=== PATIENT | female | born 1970 ===

== ENCOUNTER 2020-09-18 13:28 | Emergency (ER) | payer OTHER, MEDICAID ==
[~2020-09-18] VITALS: Ht 160 cm; Wt 76.8 kg
[2020-09-18 13:35] VITALS: Ht 160 cm; Wt 76.8 kg
[2020-09-18 14:14] LABS: BASOPHILS 0.7 % (0-2); HEMATOCRIT 37.9 % (36.0-48.0); HEMOGLOBIN 12.1 g/dL (12-16); IMMATURE GRANULOCYTES 0.1 % (0-5); LYMPHOCYTE ABS# 2.73 10x3/uL (1.18-3.74); LYMPHOCYTES 39.5 % (15-50); MCH 27.6 pg (26.0-34.0); MCHC 31.9 g/dL (31.0-37.0); MCV 86.5 fL (80.0-100.0); MONOCYTES 6.2 % (2-11); NEUTROPHIL ABS# 3.63 10x3/uL (1.56-6.13); NEUTROPHILS 52.5 % (40-80); PLATELET COUNT 291 10x3/uL (130-400); RBC 4.38 10x6/uL (4.00-5.40); RDW 14.3 % (11.5-14.5); WBC 6.9 10x3/uL (4.8-10.8)
[2020-09-18 14:19] LABS: APTT 34.1 SECONDS (22.8-39.4); INR 1.12 (0.85-1.17); PROTIME 13.3 SECONDS (11.6-15.0)
[2020-09-18 14:28] LABS: CALC OSMOLALITY 287 mosm/kg (275-300); CALCIUM 9.3 mg/dL (8.5-10.1); CARBON DIOXIDE 26.2 mmol/L (21.0-32.0); CHLORIDE - SERUM 107 mmol/L (98-107); GLUCOSE 132 mg/dL (74-106); POTASSIUM - SERUM 4.1 mmol/L (3.5-5.1); SODIUM 143 mmol/L (136-145); UREA NITROGEN 16 mg/dL (7-18); eGFR NON AFRICAN AMERICAN 62 mL/min (90-120)
[2020-09-18 14:37] LABS: ALBUMIN 3.6 g/dL (3.4-5.0); ALKALINE PHOSPHATASE 77 U/L (30-120); ALT (SGPT) 25 U/L (10-68); BILIRUBIN - TOTAL 0.25 mg/dL (0.2-1.3); CKMB 0.9 U/L (0.0-3.6); CREATINE KINASE 88 UL (21-215); MAGNESIUM - SERUM 2.2 mg/dL (1.8-2.4); PROTEIN - SERUM 6.7 g/dL (6.4-8.2)
[2020-09-18 14:40] LABS: TROPONIN-I < 0.017 ng/mL (0.000-0.060)
[2020-09-18] MEDS ORDERED: MECLIZINE HCL25 MG PO (15:42)
[2020-09-18 15:53] VITALS: BP 113/70
== END 2020-09-18 16:08 | disposition home or self-care (01) ==
LOC: D.ER 13:28
PROVIDERS: Family Medicine
DX: R42 Dizziness and giddiness (principal); R06.02 Shortness of breath; E11.9 Type 2 diabetes mellitus without complications; Z86.73 Personal history of transient ischemic attack (TIA), and cerebral infarction without residual deficits